=== PATIENT | female | born 1985 | race Caucasian/White ===

== ENCOUNTER → 2016-07-17 | Outpatient (CLI) | payer BC, MEDICAID | END | disposition home or self-care (01) | LOC: RAD.S 13:00 | DX: Z36 Encounter for antenatal screening of mother (principal); Z3A.01 Less than 8 weeks gestation of pregnancy ==

== ENCOUNTER → 2016-08-19 | Outpatient (CLI) | payer BC, MEDICAID | END | disposition home or self-care (01) | LOC: RAD.S 14:44 | DX: O36.80X0 Pregnancy with inconclusive fetal viability, not applicable or unspecified (principal); O9A.22 Injury, poisoning and certain other consequences of external causes complicating childbirth; Z3A.13 13 weeks gestation of pregnancy ==